=== PATIENT | male | born 1940 | race African-American/Black ===

== ENCOUNTER 2019-04-21 23:16 | Inpatient (IN) | payer OTHER, MEDICARE ==
[~2019-04-21] VITALS: Ht 182.9 cm; Wt 76.8 kg
[2019-04-21 23:38] LABS: BASOPHILS % (AUTO) 0.5 % (0.0-2.0); EOSINOPHILS % (AUTO) 0.5 % (1.0-6.0); HEMATOCRIT 31.1 % (41-53); HEMOGLOBIN 10.4 g/dL (13.5-17.5); LYMPHOCYTES # (AUTO) 0.7 K/uL (1.0-4.8); LYMPHOCYTES % (AUTO) 26.7 % (22.0-44.0); MEAN CORPUSCULAR HEMOGLOBIN 30.4 pg (26.0-34.0); MEAN CORPUSCULAR HGB CONC 33.4 G/dL (31.0-37.0); MEAN CORPUSCULAR VOLUME 91 fL (80-100); MONOCYTES # (AUTO) 0.3 K/uL (0.1-1.0); MONOCYTES % (AUTO) 12.5 % (2.0-9.0); NEUTROPHILS # (AUTO) 1.6 K/uL (1.8-7.7); NEUTROPHILS % (AUTO) 59.8 % (40.0-70.0); PLATELET COUNT (AUTO) 227 K/uL (150-450); RED BLOOD CELL COUNT(AUTO) 3.41 MIL/uL (4.50-5.90); RED CELL DISTRIBUTION WIDTH 16.2 % (11.5-14.5)
[2019-04-21] MEDS ORDERED: IOVERSOL 320 MG/ML 100 ML VIAL ONE (23:39)
[2019-04-21] MEDS ORDERED: SODIUM CHLORIDE 0.9% 100 ML ONE (23:39)
[2019-04-21] MEDS ORDERED: LevETIRAcetam 500 MG TABLET ONE (23:39)
[2019-04-21] MEDS ORDERED: LevETIRAcetam 1,000 MG in DEXTROSE 5%-WATER 100 ML IV ONE (23:45)
[2019-04-21 23:50] LABS: ANION GAP 10 mmol/L (8-16); CARBON DIOXIDE 26 mmol/L (22-29); CHLORIDE 108 mmol/L (98-107); CREATININE 1.38 mg/dL (0.60-1.30); GLOMERULAR FILTR. RATE CALC 60 mL/min (>60); GLUCOSE,RANDOM 114 mg/dL (70-110); POTASSIUM 4.9 mmol/L (3.5-5.1); SODIUM SERUM 144 mmol/L (136-145); UREA NITROGEN, BLOOD 25 mg/dL (7-18)
[2019-04-21 23:51] LABS: INR 2.6 (0.9-1.1); PROTHROMBIN TIME 26.5 SEC (9.4-11.6)
[2019-04-21 23:55] LABS: AMMONIA 54 umol/L (11-32); B-TYPE NATRIURETIC PEPTIDE 103 pg/mL (0-100)
[2019-04-21 23:58] LABS: TROPONIN I < 0.02 ng/mL (0.00-0.05)
[2019-04-22] VITALS (16 sets, daily range): BP systolic 124–171; BP diastolic 62–92
[2019-04-22] MEDS ORDERED: OXCA150T27 PO
[2019-04-22] MEDS ORDERED: DIVA500T52 PO
[2019-04-22] MEDS ORDERED: WARF5 PO
[2019-04-22] MEDS ORDERED: PHYTONADIONE 10 MG in SODIUM CHLORIDE 0.9% 50 ML IV ONE ×2
[2019-04-22] MEDS ORDERED: BICA50TA8 PO
[2019-04-22] MEDS ORDERED: VARD10TA20 PO
[2019-04-22] MEDS ORDERED: METO25 PO
[2019-04-22 00:14] LABS: ALANINE AMINOTRANSFERASE 22 U/L (12-78); ALBUMIN 3.7 g/dL (3.4-5.0); ALKALINE PHOSPHATASE 73 U/L (46-116); ASPARTATE AMINOTRANSFERASE 33 U/L (15-37); BILIRUBIN,TOTAL 0.3 mg/dL (0.1-1.0); CREATINE KINASE, TOTAL ONLY 315 U/L (39-308); FREE T4 (FREE THYROXINE) 0.88 ng/dL (0.76-1.46); LIPASE 201 U/L (73-393); THYROID STIMULATING HORMONE 1.44 uIU/mL (0.36-3.74); TOTAL PROTEIN, SERUM 7.5 g/dL (6.4-8.2)
[2019-04-22] MEDS ORDERED: LORazepam 2 MG/ML VIAL IVP ONE ×2 (00:45)
[2019-04-22] MEDS ORDERED: OXYGEN THERAPY IH SCH (01:00)
[2019-04-22] MEDS ORDERED: 0.9% SODIUM CHLORIDE 10 ML SYRINGE IVP PRN (01:00)
[2019-04-22] MEDS ORDERED: NICARDipine 20 MG/DEXT,ISO-OSM 200 ML IV PRN ×2 (01:00→06:54)
[2019-04-22] MEDS ORDERED: ONDANSETRON HCL 4 MG/2 ML VIAL IVP PRN ×2 (01:00→01:30)
[2019-04-22 01:10] LABS: APPEARANCE,URINE CLEAR (CLEAR); BILIRUBIN,URINE NEGATIVE (NEGATIVE); GLUCOSE, URINE (UA) 100 mg/dL (NEGATIVE); KETONES,URINE NEGATIVE (NEGATIVE); LEUKOCYTE ESTERASE ,URINE NEGATIVE (NEGATIVE); NITRATE,URINE NEGATIVE (NEGATIVE); OCCULT BLOOD,URINE TRACE (NEGATIVE); PROTEIN,URINE NEGATIVE (NEGATIVE)
[2019-04-22 01:17] LABS: BACTERIA,URINE None Seen /HPF (None Seen); WBC,URINE None Seen /HPF (0-5)
[2019-04-22 01:18] LABS: SQUAMOUS EPITHELIAL CELL,UR Rare /LPF (None Seen)
[2019-04-22] MEDS ORDERED: ZOLPIDEM TARTRATE 5 MG TABLET PO PRN (01:30)
[2019-04-22] MEDS ORDERED: LORazepam 2 MG/ML VIAL IVP PRN ×2 (01:30→10:30)
[2019-04-22] MEDS ORDERED: HydrALAZINE HCL 20 MG/ML VIAL IVP PRN (01:30)
[2019-04-22] MEDS ORDERED: ACETAMINOPHEN 325 MG TABLET PO PRN (01:30)
[2019-04-22] MEDS ORDERED: IPRATROPIUM BROMIDE 0.5 MG/2.5 ML NEB SOLUTION NEB PRN (01:30)
[2019-04-22] MEDS ORDERED: VANCOMYCIN HCL 1 GM/D5% WATER 200 ML IV SCH (01:30)
[2019-04-22] MEDS ORDERED: ALBUTEROL SULFATE 2.5 MG/0.5 ML NEB SOLUTION NEB PRN (01:30)
[2019-04-22] MEDS ORDERED: OxyCODONE HCL/ACETAMINOPHEN 5-325 MG TABLET PO PRN (01:30)
[2019-04-22] MEDS ORDERED: CloNIDine HCL 0.1 MG TABLET PO PRN (01:30)
[2019-04-22] MEDS ORDERED: MAGNESIUM HYDROXIDE SUSPENSION 30 ML UDCUP PO PRN (01:30)
[2019-04-22] MEDS ORDERED: MORPHINE SULFATE 2 MG/ML SYRINGE IVP PRN (01:30)
[2019-04-22] MEDS ORDERED: BISACODYL 10 MG RECTAL RECTAL SUPPOSITORY PR PRN (01:30)
[2019-04-22] MEDS ORDERED: VANCOMYCIN HCL 1.5 GM in DEXTROSE 5%-WATER 250 ML IV ONE (02:00)
[2019-04-22] MEDS: DEXTROSE 5%-0.45% SODIUM CHL 1,000 ML IV SCH ×2 (02:43→14:17)
[2019-04-22] MEDS ORDERED: SODIUM CHLORIDE 0.9% 250 ML IV ONE (03:44)
[2019-04-22] MEDS: LORazepam 2 MG/ML VIAL IVP PRN ×2 (04:10→10:37)
[2019-04-22] MEDS ORDERED: ACETAMINOPHEN 650 MG RECTAL SUPPOSITORY PR PRN (04:15)
[2019-04-22 05:08] LABS: BASOPHILS % (AUTO) 0.1 % (0.0-2.0); EOSINOPHILS % (AUTO) 0 % (1.0-6.0); HEMATOCRIT 29.8 % (41-53); LYMPHOCYTES # (AUTO) 0.5 K/uL (1.0-4.8); LYMPHOCYTES % (AUTO) 6.6 % (22.0-44.0); MEAN CORPUSCULAR HEMOGLOBIN 30.8 pg (26.0-34.0); MEAN CORPUSCULAR HGB CONC 33.7 G/dL (31.0-37.0); MEAN CORPUSCULAR VOLUME 92 fL (80-100); MONOCYTES # (AUTO) 0.5 K/uL (0.1-1.0); MONOCYTES % (AUTO) 6.6 % (2.0-9.0); NEUTROPHILS # (AUTO) 6.1 K/uL (1.8-7.7); PLATELET COUNT (AUTO) 210 K/uL (150-450); RED BLOOD CELL COUNT(AUTO) 3.25 MIL/uL (4.50-5.90)
[2019-04-22 05:10] LABS: NEUTROPHILS % (AUTO) 86.7 % (40.0-70.0)
[2019-04-22 05:14] LABS: INR 1.6 (0.9-1.1); PROTHROMBIN TIME 16.9 SEC (9.4-11.6)
[2019-04-22 05:17] LABS: ANION GAP 18 mmol/L (8-16); CALCIUM, TOTAL 8.7 mg/dL (8.8-10.5); CARBON DIOXIDE 20 mmol/L (22-29); CHLORIDE 102 mmol/L (98-107); CREATININE 1.32 mg/dL (0.60-1.30); GLUCOSE,RANDOM 182 mg/dL (70-110); POTASSIUM 3.1 mmol/L (3.5-5.1); SODIUM SERUM 140 mmol/L (136-145); UREA NITROGEN, BLOOD 21 mg/dL (7-18)
[2019-04-22 05:18] LABS: GLOMERULAR FILTR. RATE CALC > 60 mL/min (>60)
[2019-04-22] MEDS ORDERED: POTASSIUM CHLORIDE 20 MEQ ER TABLET PO PRN (06:00)
[2019-04-22] MEDS: HALOPERIDOL LACTATE 5 MG/ML VIAL IVP PRN (07:46)
[2019-04-22] MEDS: POTASSIUM CHL 10 MEQ/WATER 50 ML IV PRN ×4 (08:05→14:17)
[2019-04-22] MEDS: BICALUTAMIDE 50 MG TABLET PO SCH (09:00)
[2019-04-22] MEDS: OXcarbazepine 300 MG TABLET PO SCH ×2 (09:00→21:00)
[2019-04-22] MEDS ORDERED: FAMOTIDINE 20 MG TABLET PO SCH (09:00)
[2019-04-22] MEDS ORDERED: METOPROLOL TARTRATE 25 MG TABLET PO SCH (09:00)
[2019-04-22] MEDS: DIVALPROEX SODIUM 500 MG ER TABLET PO SCH ×2 (09:00→21:00)
[2019-04-22] MEDS: VANCOMYCIN HCL 1.5 GM in DEXTROSE 5%-WATER 250 ML IV SCH (11:09)
[2019-04-22] MEDS: LevETIRAcetam 750 MG in DEXTROSE 5%-WATER 100 ML IV SCH ×2 (11:10→23:59)
[2019-04-22] MEDS ORDERED: METOPROLOL TARTRATE 5 MG/5 ML VIAL IVP SCH (16:00)
[2019-04-22] MEDS: METOPROLOL TARTRATE 5 MG/5 ML VIAL IVP SCH ×2 (18:00→23:59)
[2019-04-23] VITALS: BP 160/90
[2019-04-23] MEDS: LORazepam 2 MG/ML VIAL IVP PRN (03:28)
[2019-04-23 04:00] VITALS: BP 177/93
[2019-04-23] MEDS: HALOPERIDOL LACTATE 5 MG/ML VIAL IVP PRN (04:01)
[2019-04-23] MEDS: DEXTROSE 5%-0.45% SODIUM CHL 1,000 ML IV SCH (04:27)
[2019-04-23] MEDS: METOPROLOL TARTRATE 5 MG/5 ML VIAL IVP SCH ×2 (05:04→11:46)
[2019-04-23 05:11] LABS: BASOPHILS % (AUTO) 0.4 % (0.0-2.0); HEMATOCRIT 29.5 % (41-53); LYMPHOCYTES # (AUTO) 0.6 K/uL (1.0-4.8); LYMPHOCYTES % (AUTO) 18.4 % (22.0-44.0); MEAN CORPUSCULAR HEMOGLOBIN 30.9 pg (26.0-34.0); MEAN CORPUSCULAR VOLUME 91 fL (80-100); MONOCYTES # (AUTO) 0.3 K/uL (0.1-1.0); MONOCYTES % (AUTO) 11.5 % (2.0-9.0); NEUTROPHILS # (AUTO) 2.1 K/uL (1.8-7.7); NEUTROPHILS % (AUTO) 68.7 % (40.0-70.0); PLATELET COUNT (AUTO) 204 K/uL (150-450); RED BLOOD CELL COUNT(AUTO) 3.24 MIL/uL (4.50-5.90); RED CELL DISTRIBUTION WIDTH 16.1 % (11.5-14.5)
[2019-04-23 05:12] LABS: INR 1.1 (0.9-1.1); PROTHROMBIN TIME 11.4 SEC (9.4-11.6)
[2019-04-23 05:57] LABS: ALANINE AMINOTRANSFERASE 23 U/L (12-78); ALBUMIN 3.5 g/dL (3.4-5.0); ALKALINE PHOSPHATASE 73 U/L (46-116); ANION GAP 9 mmol/L (8-16); ASPARTATE AMINOTRANSFERASE 51 U/L (15-37); BILIRUBIN,TOTAL 1.1 mg/dL (0.1-1.0); CALCIUM, TOTAL 8.4 mg/dL (8.8-10.5); CARBON DIOXIDE 25 mmol/L (22-29); CHLORIDE 104 mmol/L (98-107); CREATININE 0.89 mg/dL (0.60-1.30); GLUCOSE,RANDOM 116 mg/dL (70-110); PHOSPHORUS 3.4 mg/dL (2.5-4.9); POTASSIUM 3.4 mmol/L (3.5-5.1); SODIUM SERUM 138 mmol/L (136-145); TOTAL PROTEIN, SERUM 6.8 g/dL (6.4-8.2); UREA NITROGEN, BLOOD 11 mg/dL (7-18)
[2019-04-23 06:00] LABS: CREATINE KINASE, TOTAL ONLY 2054 U/L (39-308); GLOMERULAR FILTR. RATE CALC > 60 mL/min (>60)
[2019-04-23] MEDS: POTASSIUM CHL 10 MEQ/WATER 50 ML IV PRN ×3 (06:06→07:42)
[2019-04-23] MEDS: VANCOMYCIN HCL 1.5 GM in DEXTROSE 5%-WATER 250 ML IV SCH (07:42)
[2019-04-23 08:00] VITALS: BP 150/96
[2019-04-23] MEDS ORDERED: GADOBUTROL 1 MMOL/ML 10 ML VIAL IVP ONE (08:17)
[2019-04-23] MEDS: DIVALPROEX SODIUM 500 MG ER TABLET PO SCH (09:00)
[2019-04-23] MEDS: OXcarbazepine 300 MG TABLET PO SCH (09:00)
[2019-04-23] MEDS: BICALUTAMIDE 50 MG TABLET PO SCH (09:00)
[2019-04-23] MEDS: LevETIRAcetam 750 MG in DEXTROSE 5%-WATER 100 ML IV SCH (10:13)
[2019-04-23 12:00] VITALS: BP 142/75
[2019-04-23 16:00] VITALS: BP 115/77
== END 2019-04-23 17:40 | disposition short-term general hospital (02) | DRG 871 ==
LOC: EMS 23:16 → ICU 04-22 00:52
PROVIDERS: ADMIT Internal Medicine; ATTEND Internal Medicine
PROC: 30233K1 Transfusion of Nonautologous Frozen Plasma into Peripheral Vein, Percutaneous Approach (ICD-10-PCS; principal; 2019-04-22)
PROC: 05HY33Z Insertion of Infusion Device into Upper Vein, Percutaneous Approach (ICD-10-PCS; 2019-04-22)
PROC: B54MZZA Ultrasonography of Right Upper Extremity Veins, Guidance (ICD-10-PCS; 2019-04-22)
DX: A41.9 Sepsis, unspecified organism (principal); N17.0 Acute kidney failure with tubular necrosis; I61.1 Nontraumatic intracerebral hemorrhage in hemisphere, cortical; E72.20 Disorder of urea cycle metabolism, unspecified; E87.2 Acidosis; M62.82 Rhabdomyolysis; D64.9 Anemia, unspecified; G30.9 Alzheimer's disease, unspecified; F02.80 Dementia in other diseases classified elsewhere, unspecified severity, without behavioral disturbance, psychotic disturbance, mood disturbance, and anxiety; G40.401 Other generalized epilepsy and epileptic syndromes, not intractable, with status epilepticus; I10 Essential (primary) hypertension; I48.0 Paroxysmal atrial fibrillation; Z79.01 Long term (current) use of anticoagulants; Z86.79 Personal history of other diseases of the circulatory system; Z95.2 Presence of prosthetic heart valve; Z85.46 Personal history of malignant neoplasm of prostate
CPT/HCPCS: 36245; 36569; 70450; 76937; 83605; 83735; 84100; 84132; 84439; 84443; 86850; 86900; 86901; 86927; 87040; 87081; 93005; 93306; 96365; 96375; 96376; 97167; 97535; 99291; 99292; A9585; G0378; G0480; J0712; J1630; J2060; J2270; J3370; J3430; J3480; J3490; J7050; J7060; P9017